=== PATIENT | female | born 1965 | race Asian ===

== ENCOUNTER 2018-04-20 07:06 | Day surgery (SDC) | payer OTHER ==
[2018-04-20] MEDS ORDERED: FENTAnyl 50 MCG/ML VIAL (09:42)
[2018-04-20] MEDS ORDERED: MIDAZOLAM 1 MG/ML 2 ML INJ ×2 (09:42)
== END 2018-04-20 12:41 | disposition home or self-care (01) ==
LOC: GIL 07:06
DX: Z12.11 Encounter for screening for malignant neoplasm of colon (principal); K64.4 Residual hemorrhoidal skin tags; K64.8 Other hemorrhoids
CPT/HCPCS: 45378; 84703